=== PATIENT | male | born 1955 | race Caucasian/White ===

== ENCOUNTER 2019-09-20 14:41 | Emergency (ER) | payer MEDICARE, MEDICAID ==
[~2019-09-20] VITALS: Ht 180.3 cm; Wt 109.2 kg
[2019-09-20 14:44] VITALS: BP 146/76
--- NOTE | 2019-09-20 15:20 | NUR ---
THIS IS A 64 YO M W/ C/O INTERMITTENT COUGH AND CONGESTION SINCE JULY. PT REPORTS NOT CURRENTLY EXPERIENCING ANY SYMPTOMS TODAY BUT WOULD LIKE TO GET TESTED FOR COVD. PT VSS, DOMINIC. CONVERSING W/O DIFFICULTY. IN ROOM FOR ED EVAL.
== END 2019-09-20 16:01 ==
LOC: ED 15:55
DX: B34.9 Viral infection, unspecified (principal); Z20.828 Contact with and (suspected) exposure to other viral communicable diseases
CPT/HCPCS: 99283; U0001

== ENCOUNTER 2020-08-14 15:04 | Emergency (ER) | payer MEDICARE, MEDICAID ==
[~2020-08-14] VITALS: Ht 180.3 cm; Wt 110.3 kg
[2020-08-14 15:09] VITALS: BP 132/85
--- NOTE | 2020-08-14 15:41 | NUR ---
ENDODONTICS DENTIST: PT AMBULATORY TO ROOM FROM LOBBY
--- NOTE | 2020-08-14 15:43 | NUR ---
THIS IS A 65 YEAR OLD MALE WHO C/O PT C/O RIGHT PINKY DRYNESS/IRRITATION AND REQUESTING MX TESTS/PRESCRIPTIONS FOR VARIOUS CHRONIC THINGS.
== END 2020-08-14 16:50 | disposition home or self-care (01) ==
LOC: ED 16:44
DX: I87.2 Venous insufficiency (chronic) (peripheral) (principal); Z72.9 Problem related to lifestyle, unspecified; Z76.0 Encounter for issue of repeat prescription
CPT/HCPCS: 99281; 99282

== ENCOUNTER 2020-12-01 08:16 | Emergency (ER) | payer MEDICARE, MEDICAID ==
[~2020-12-01] VITALS: Ht 182.9 cm; Wt 102.0 kg
--- NOTE | 2020-12-01 08:57 | NUR ---
Called for pt in lobby, no answer. Found international trade specialist with empty wheelchair in front of ER bathroom across from room 1 stating pt is in the bathroom. No urine sample requested prior to allowing pt in room per sr technical sales consultant acting as sitter for other pts next bathroom. Pt with argumentative affect with RN upon exiting bathroom. RN took pt by wheelchair around to room 9 where pt was requested to change into a gown and await RN return for further assessment and questions.
--- NOTE | 2020-12-01 09:15 | NUR ---
Pt declining to answer many mailing machine helper questions. MD arrived and able to get pt to answer questions for his exam.
[2020-12-01 09:23] LABS: BASOPHILS % (AUTO) 0 % (0-1); EOSINOPHILS % (AUTO) 0 % (1-7); LYMPHOCYTES % (AUTO) 3 % (22-44); MEAN CORPUSCULAR HEMOGLOBIN 29.9 pg (27.5-34.5); MEAN CORPUSCULAR HGB CONC 33.8 g/dL (33.2-36.2); MEAN PLATELET VOLUME 10.4 fL (7.4-10.4); MONOCYTES % (AUTO) 4 % (2-9); NEUTROPHILS % (AUTO) 93 % (42-75); PLATELET COUNT 146 x10^3/uL (130-400); RED BLOOD COUNT 5.61 x10^6/uL (4.38-5.82); RED CELL DISTRIBUTION WIDTH 13.8 % (9.4-14.8)
[2020-12-01] MEDS ORDERED: MORPHINE SULFATE 4 MG/ML, 1ML IVPush PRN (09:30)
[2020-12-01] MEDS ORDERED: ONDANSETRON 2MG/ML, 2ML IVPush ONE (09:30)
[2020-12-01] MEDS ORDERED: SODIUM CHLORIDE FLUSH 10ML SYR IVF ONE (09:30)
[2020-12-01] MEDS ORDERED: SODIUM CHLORIDE 0.9% 1,000ML IVBOLUS ONE (09:30)
[2020-12-01 09:36] LABS: ALANINE AMINOTRANSFERASE 23 U/L (12-78); ANION GAP 8 mmol/L (5-15); CALCIUM 8.8 mg/dL (8.5-10.1); CHLORIDE 107 mmol/L (98-107)
[2020-12-01 09:38] LABS: ALKALINE PHOSPHATASE 98 U/L (45-117); BILIRUBIN,TOTAL 0.7 mg/dL (0.2-1.0); TOTAL PROTEIN 7.8 g/dL (6.4-8.2)
[2020-12-01] MEDS ORDERED: MORPHINE SULFATE 4 MG/ML, 1ML ONE (09:56)
[2020-12-01] MEDS ORDERED: ONDANSETRON 2MG/ML, 2ML ONE (09:57)
--- NOTE | 2020-12-01 10:05 | NUR ---
IV attempt x2 unsuccessful. Second RN called to bedside for IV start for CT with contrast.
--- NOTE | 2020-12-01 10:15 | NUR ---
Second RN states IV in placed, NS running wide open for bolus as per orders. Pt declined any pain or nausea medications stating no pain or nausea present at this time. Awaiting UA sample and care tech arrival at this time.
--- NOTE | 2020-12-01 11:00 | NUR ---
IV fluids completed and site saline locked.
--- NOTE | 2020-12-01 11:08 | NUR ---
Pt taken to CT now.
--- NOTE | 2020-12-01 11:21 | NUR ---
Pt back to room from CT. Pt reminded that UA sample is needed as soon as he is able to provide one.
[2020-12-01] MEDS ORDERED: OMNIPAQUE 350 MG/ML, 100ML BOTTLE ONE (11:25)
--- NOTE | 2020-12-01 11:38 | NUR ---
Pt VS remain stable and pt is sleeping. Urinal remains at bedside within pt reach and need for UA remains.
--- NOTE | 2020-12-01 12:28 | NUR ---
Pt awakened and given urinal with stated need for UA sample now. Pt able to urinate 100mL of clear yellow UOP, and UA sample sent to lab. Pt back to sleep right away and awaiting results/recheck by
[2020-12-01 12:38] LABS: MICROSCOPIC NOT IND
--- NOTE | 2020-12-01 12:46 | NUR ---
All labs and radiology exams back and reviewed. Chart marked for recheck.
[2020-12-01 13:47] VITALS: BP 124/79
== END 2020-12-01 13:49 | disposition home or self-care (01) ==
LOC: ED 12:03
DX: K42.9 Umbilical hernia without obstruction or gangrene (principal); R10.84 Generalized abdominal pain; R11.2 Nausea with vomiting, unspecified; R42 Dizziness and giddiness; R00.0 Tachycardia, unspecified
CPT/HCPCS: 36415; 74022; 74177; 80053; 81003; 83690; 85025; 93005; 96360; 99285; J7030; Q9967